=== PATIENT | female | born 1960 | race Caucasian/White ===

== ENCOUNTER 2024-12-21 17:51 | Inpatient (IN) | payer MEDICARE, OTHER, SELFPAY ==
[2024-12-21] VITALS (11 sets, daily range): BP systolic 113–139; BP diastolic 60–119; BMI 20.1
[2024-12-21] MEDS: HALDOL 5 MG IM (13:06)
[2024-12-21] MEDS: NSS 1000 IV (13:09)
--- NOTE | 2024-12-21 13:21 | ED.GENMED ---
History of Present Illness
General
Chief Complaint: Change in Mental Status
Time Seen by Provider: 12/21/24 12:40
History of Present Illness
History of Present Illness:
64-year-old female with history of dementia presenting from nursing facility for concern of increased agitation. Per nursing facility, patient has been agitated, started Seroquel, however reports it is not working. Patient very limited historian
on arrival, unable to answer any specific questions. Noted to be febrile on arrival. No reported infectious symptoms. No additional history obtained at this time
Phy Exam
Physical Exam
Physical Exam:
General: Cachectic, frail, dry mucous membranes
HEENT: protecting airway
Neck: appears supple
CV: Tachycardic, regular rhythm, no evidence of cyanosis
Resp: No accessory muscle use, no increased work of breathing, lungs clear to auscultation bilaterally
Abd: Soft and non-distended, no tenderness to palpation
Extremities: No deformities, no swelling, no erythema. Scattered bruising
Neuro: Awake, not answering any direct questions, moving all extremities equally
: deferred
Rectal: deferred
Psych: Agitated
Skin: Intact
Sepsis
Sepsis Screening
Sepsis Assessment: Sepsis
Sepsis Screen
Sepsis Screen: Sepsis
Date: 12/21/24
Time: 20:30
Course
Orders/Labs/Results
Orders:
Orders
12/21/24 Breakfast
Regular
12/21/24 12:51
Haloperidol Lactate [Haldol] 5 mg IM NOW STA
12/21/24 12:52
0.9% Sodium Chloride 1000 ml [Nss] 1,000 ml IV BOLUS
Haloperidol Lactate [Haldol] 5 mg .ROUTE .STK-MED ONE
12/21/24 12:53
CR Chest Portable - 1 View Urgent
Comment:
Reason For Exam: fever, AMS
Reason Study Needs to be Portable: Unable to Transport
12/21/24 13:13
COVID-19 Antigen Urgent
Source: Nasal Swab
Complete Blood Count/With Diff Urgent
Comprehensive Metabolic Panel Urgent
Lactic Acid Q4H
Comment: CANCEL 2nd LACTIC ACID IF 1st LACTIC ACID IS LESS THAN 2
Urinalysis Reflex To Culture Urgent
Date Specimen was Collected: 12/21/24
Time Specimen was Collected: 13:11
Urine Microscopic Reflex Cult Urgent
Blood Culture Q30M
JAUN Source: Blood/Venous
Specimen Description:
Influenza A+B Rapid Molecular Urgent
JAUN Source: Nasal Swab
Specimen Description:
Urine Culture Urgent
JAUN Source: U
Specimen Description:
Date Specimen was Collected: 12/21/24
Time Specimen was Collected: 13:11
12/21/24 13:54
CT Head W/o Iv Contrast Urgent
Comment:
Reason For Exam: AMS
12/21/24 14:00
Cefepime HCl [Maxipime] 2,000 mg IV NOW STA
12/21/24 14:09
Blood Culture Q30M
JAUN Source: Blood/Venous
Specimen Description:
12/21/24 14:40
Acetaminophen [Tylenol/Feverall] 650 mg RECTAL NOW STA
12/21/24 16:01
Admit/Transfer Patient As Directed
Co-Sign Provider:
Level of Care: Inpatient admission
Assign to:: Medical/Surgical
Physician / Group: Clementina
Diagnosis: Sepsis, UTI/PNA
Reason for Hospitalization: IV abx
Expected length of stay greater than two midnights?: Yes
ELOS- Estimated Length of Stay in days: 3
I certify the patient meets the requirements for IP care: Yes
PRN Pain Medication Management As Directed
May give lesser potent ordered pain med per pt: Yes
preference::
Protocol:: Medication orders for pain may be administered in a
manner that supports deferring to patient preference
when the pt is:
- Requesting an ordered lesser potent pain medication.
Least to most potent pain medications are defined
as: acetaminophen < NSAID < tramadol < opioids
(morphine, oxycodone, hydromorphone).
- Requesting a lesser dose of the same medication IF
ORDERED.
- Requesting a less intrusive route of administration
if both routes are prescribed by the provider (PO <
IV).
12/21/24 16:02
Code Status As Directed
Resuscitation Status: Do not resuscitate
Based on pt advanced directive or healthcare POA form: Yes
DNR Bracelet Application ONCE
12/21/24 16:09
ECG [Electrocardiogram (*1)] Urgent
Reason for Study: QTc Monitoring
12/21/24 16:38
Lactated Ringers [Lr] 1,000 ml IV BOLUS
12/21/24 18:25
Lactic Acid Q4H
Comment: CANCEL 2nd LACTIC ACID IF 1st LACTIC ACID IS LESS THAN 2
12/21/24 19:40
Acetaminophen [Tylenol] 650 mg PO Q4HPRN PRN
CefTRIAXone [Rocephin] 1,000 mg IV Q24H
Enoxaparin Sodium [Lovenox] 40 mg SC QPM
Lactated Ringers [Lr] 1,000 ml IV 75 mls/hr
12/21/24 19:40
Activity As Directed
Activity Level: Out of Bed-Early Mobility
With Assistance
Bladder Scan As Directed
Follow Bladder Retention/Intermittent Cath Algorithm?: Yes
PRN if no void in __ hours: 6
Frequency: Per Retention Algorithm
If Bladder Scan Result >: 400
then:: Straight cath
I&O [Intake/ Output] As Directed
Frequency: q12h
Pneumatic Compression Sleeves As Directed
Type: Knee high
Straight Cath As Directed
Frequency: Per Retention Algorithm
Additional Instructions: straight cath as needed per acute urinary retention algorithm for 24 hrs
Additional Instructions: for bladder scan greater than 400 mL
Vital Signs As Directed
Frequency: Per unit guidelines
DX Deep Vein Thrombosis Video Routine
DX Deep Vein Thrombosis Video Routine
12/21/24 20:00
Doxycycline [Vibramycin] 100 mg PO Q12
12/21/24 22:00
Divalproex Sodium [Depakote Sprinkle] 125 mg PO Q8H
Donepezil HCl [Aricept] 10 mg PO HS
Melatonin 3 mg PO HS
Quetiapine Fumarate [Seroquel] 25 mg PO HS
12/22/24 06:00
Complete Blood Count/No Diff IN AM
Comprehensive Metabolic Panel IN AM
Magnesium IN AM
12/22/24 08:00
Pantoprazole [Protonix] 40 mg PO DAILY
Quetiapine Fumarate [Seroquel] 12.5 mg PO DAILY
Sertraline HCl [Zoloft] 50 mg PO DAILY
Abnormal Lab Results
12/21/24
13:13
WBC 19.6 H 10^3/uL
(4.8-10.8)
RBC 4.07 L 10^6/uL
(4.20-5.40)
MCH 32.4 H pg
(27.0-31.0)
MPV 12.6 H fL
(7.4-10.4)
Abs Immat Gran (auto) 0.1 H 10^3/uL
(0-0.05)
Absolute Neuts (auto) 15.1 H 10^3/uL
(1.4-6.5)
Absolute Monos (auto) 2.4 H 10^3/uL
(0.1-0.6)
Immature Gran % 0.6 H %
(0-0.5)
Neutrophils % 76.9 H %
(42.2-75.2)
Lymphocytes % 9.6 L %
(20.5-51.1)
Monocytes % 12.3 H %
(1.7-9.3)
Sodium 149 H mmol/L
(135-145)
Chloride 113 H mmol/L
(98-107)
BUN 51 H mg/dl
(7-17)
Glucose 102 H mg/dl
(70-99)
Lactic Acid 2.9 H mmol/L
(0.7-2.0)
AST 88 H U/L
(14-36)
ALT 49 H U/L
(0-35)
Urine Ketones 1+ A
(Negative)
Ur Occult Blood Reflex 1+ A
(Negative)
Urine Bilirubin 1+ A
(Negative)
Leukocyte Esterase Rfl 1+ A
(Negative)
Urine RBC 7-10 A /HPF
(0-2)
Urine WBC (Reflex) 16-20 A /HPF
(0-5)
Urine Bacteria (Reflex) Moderate A
(Negative)
Urine Albumin (Reflex) 2+ A
(Neg - Trace)
12/21/24 13:13
12/21/24 13:13
Vital Signs
Initial and Last Documented VS:
Initial Vital Signs
Pulse Ox
98
12/21/24 12:45
Last Documented Vital Signs
Temp Pulse Resp BP Pulse Ox
98.0 F 73 17 137/93 97
12/21/24 20:07 12/21/24 20:07 12/21/24 20:07 12/21/24 20:07 12/21/24 19:00
MDM/Problems Addressed
MDM/Problems Addressed:
64-year-old female presenting from facility for concern of increased agitation. Vital signs on arrival significant for fever and tachycardia.
On exam patient is in no acute distress, however is very agitated, rolling around in bed, yelling. Known history of dementia, possible compensated dementia, however in the setting of low-grade fever and tachycardia, infectious pathology is also
consideration. Patient unable to answer any specific questions. Per nursing facility, started on Seroquel yesterday. Serotonin syndrome is a consideration, however no clonus or hyperreflexia. Patient given Haldol for agitation. Plan for
laboratory analysis and IV fluids.
14:00 -patient with elevated lactic acid and leukocytosis, consistent with infectious pathology. Blood pressure remains stable and lactate is also 4 without concern for severe sepsis or septic shock. Will continue IV fluids as clinically
indicated. Patient's urine does show elements of infection, was a clean source, start cath. Will start cefepime. Patient is more calm after Haldol. Will require admission for change in mental status with concern of underlying infection and
possible sepsis
15:00 -CT head negative and chest x-ray without sign of infection. Plan for admission
*Pulse Oximetry
SaO2: 99
Oxygen Mode of Delivery: Room air
Patient hypoxic: no
*Critical Care Note
Total Time (30-74mins, 75-104mins- exclusive of procedures): Not Applicable
ED Attending Note
-
Portions of this chart may have been created with voice recognition software.� Occasional wrong word or��sound alike� substitutions may have occurred due to the inherent limitations of voice recognition software.
Discharge Plan
Departure
Patient Disposition: Admit
Date of Disposition: 12/21/24
Time of Disposition: 15:05
Presentation/result/management discussed w/ accepting MD/DO: Hospitalist
Patient with high blood pressure during this ER visit?: Yes
Condition: Fair
Discharge Problem:
Altered mental status, Sepsis, Urinary tract infection
Interventions
Interventions:
*Risk Screen - Suicide Last Done: 12/21/24 12:46
*General Assessment Last Done: 12/21/24 12:46
*Neglect/Abuse Screening Last Done: 12/21/24 12:46
*ED- Fall Risk Assessment Last Done: 12/21/24 14:12
*ED COVID-19 Vaccine History Last Done: 12/21/24 14:12
*Nursing Disposition Last Done: 12/21/24 19:26
ED- Pulmonary Assessment Last Done: 12/21/24 12:45
ED-Psychological Assessment Last Done: 12/21/24 12:45
ED- Neurological Assessment Last Done: 12/21/24 12:45
ED Swallowing Screen Last Done: 12/21/24 16:10
Discharge Date and Time
Discharge Date/Time: 12/21/24 19:26
[2024-12-21 13:23] LABS: Hematocrit 39.4 % (37.0-47.0); Hemoglobin 13.2 g/dL (12.0-16.0); Mean Corp Hgb Conc. 33.5 g/dL (33.0-37.0); Mean Corpuscular Volume 96.8 fL (81.0-99.0); Nucleated Red Blood Cells % 0 %; Platelet Count 199 10^3/uL (130-400); Red Cell Dist. Width 12.1 % (11.5-14.5)
[2024-12-21 13:24] LABS: Urine Character Clear (Clear)
[2024-12-21 13:41] LABS: Urine Squamous Cell 26-30 /LPF (Few)
[2024-12-21 13:42] LABS: Urine White Cell 16-20 /HPF (0-5)
[2024-12-21 13:43] LABS: ALT (SGPT) 49 U/L (0-35); AST (SGOT) 88 U/L (14-36); Albumin 4.7 g/dl (3.5-5.0); Alkaline Phosphatase 56 U/L (38-126); Blood Urea Nitrogen 51 mg/dl (7-17); Calcium 10.1 mg/dl (8.4-10.2); Carbon Dioxide 27 mmol/L (22-30); Chloride 113 mmol/L (98-107); Estimated Creatinine Clearance 57 ml/min; Glucose 102 mg/dl (70-99); Potassium 4.5 mmol/L (3.5-5.1); Sodium 149 mmol/L (135-145); Total Protein 7.9 g/dl (6.3-8.2); eGFR > 60.00
[2024-12-21 13:56] LABS: COVID-19 Antigen Negative (Negative)
[2024-12-21] MEDS: MAXIPIME 2000 MG IV (14:14)
--- NOTE | 2024-12-21 15:39 | HPS.HSE ---
Addendum entered and electronically signed by Roney Mcrae MD 12/21/24 17:28:
I saw and examined the patient.
The PROFESSOR OF ANTHROPOLOGY or PA's note was reviewed and I agree with the note.
Comment:
64-year-old female with past medical history of dementia and memory care unit presents with agitation. At the time of admission, patient is somnolent due to Haldol given for agitation. As per ED, patient was started on Seroquel at the unit for
agitation although was not working. Also had limited history upon arrival. Data includes temperature 99.2, pulse 79, respiratory rate 20, blood pressure 116/61. White count 19.6, sodium 149, UA positive. X-ray with possible left basilar opacity
indicative of either atelectasis or pneumonia. There is some periosteal thickening of the mid diaphysis of the right humerus, possible old injury, less likely infection.
Plan�ceftriaxone, doxycycline to cover UTI as well as pneumonia. Follow-up blood cultures. LR bolus now, continue IV fluids. Repeat BMP in the morning. Holding statin for transaminitis. Haldol as needed if needed EKG with QTc under 500. Avoid
benzodiazepines. If mental status does not improve with antibiotics then may need to investigate right humerus further. At this time UTI along with possible pneumonia is more likely source of infection.
Original Note:
Family Physician
-
Family Physician: Domo Echevarria
Chief Complaint
-
Agitation
History of Present Illness
Patient is a 64 y/o female past medical history of dementia who presents with agitation. Patient is unable to give any additional history due to dementia and her current sedated state following Haldol 5mg IM given in ED prior to my evaluation.
Patient was brought to the hosptial via EMS due to extreme agitation. Upon arrival to the emergency department she was noted to be febrile with temp 100.7F. Urinalysis raises concern for possible infection, and CXR shows a LLL opacity possibly
atelectasis vs pneumonia.
Medical History
Past Medical History
Past Medical History: Reports Other
Additional Past Medical History:
Alzheimer's Dementia
Anxiety/Depression
Hyperlipidemia
Past Surgical History: Reports Other (Unknown)
Social History
Unable to obtain full social history at this time due to: Dementia
Living: Assisted Living (Memory Care)
Family History
Family History: Unable to Obtain
Allergies / Home Medications
Allergies reflects when Allergies were last updated in [facility].
Home Medications with original date entered in [facility]
Allergy/Medication List:
Allergies
Allergy/AdvReac Type Severity Reaction Status Date / Time
No Known Allergies Allergy Unverified 12/21/24 12:46
Home Medications
acetaminophen 650 mg tablet,extended release 650 mg PO DAILYPRN PRN mild pain 12/21/24
atorvastatin 20 mg tablet (Lipitor) 20 mg PO DAILY 12/21/24
divalproex 125 mg capsule,delayed release sprinkle 125 mg PO Q8H@0600,1400,2200 12/21/24
donepezil 10 mg tablet 10 mg PO HS 12/21/24
ergocalciferol (vitamin D2) 1,250 mcg (50,000 unit) capsule 1,250 mcg PO WEEKLY 12/21/24
melatonin 3 mg tablet 3 mg PO HS 12/21/24
omeprazole 20 mg tablet,delayed release 20 mg PO DAILY 12/21/24
quetiapine 25 mg tablet (Seroquel) 12.5 mg PO DAILY 12/21/24
quetiapine 25 mg tablet (Seroquel) 25 mg PO HS 12/21/24
sertraline 50 mg tablet 50 mg PO DAILY 12/21/24
Review of Systems
-
Unable to obtain full review of systems at this time due to: Dementia
Physical Exam
Vital Signs
Vital Signs
Temp Pulse Resp BP Pulse Ox
100.7 F H 88 15 128/67 99
12/21/24 12:46 12/21/24 15:30 12/21/24 15:30 12/21/24 14:52 12/21/24 13:24
Physical Exam
General: Well Developed and Well Nourished
HEENT: NormoCephalic and Atraumatic
Respiratory: Clear and Non Labored Respirations
Cardiac: S1/S2 and Regular Rhythm; No Tachycardia
GI: Soft and Non Tender
Rectal: Deferred by Provider
Musculoskeletal: No Clubbing, No Cyanosis and No Edema
Skin: Warm and Dry
Neuro: Sedated
Laboratory Results
-
12/21/24 13:13
12/21/24 13:13
Laboratory Results
Lactic Acid 2.9 mmol/L (0.7-2.0) H 12/21/24 13:13
Total Bilirubin 1.3 mg/dl (0.2-1.3) 12/21/24 13:13
AST 88 U/L (14-36) H 12/21/24 13:13
ALT 49 U/L (0-35) H 12/21/24 13:13
Alkaline Phosphatase 56 U/L (38-126) 12/21/24 13:13
Impression/Plan
-
Sepsis / TME secondary to UTI vs Pneumonia
-Continue ceftriaxone and doxycycline
-Await urine and blood culture
Hypernatremia / Azotemia
-Continue IVFs
-Recheck labs in AM
Transaminitis
-Hold statin
-Continue to trend
-Consult Abd US if trending upwards
Alzheimer's Dementia, suspect underlying behavioral disturbance
-Continue divalproex and quetiapine
-Continue donepezil
Anxiety/Depression
-Continue sertraline
Insomnia
-Continue melatonin
Hyperlipidemia
-Hold atorvastatin as AST/ALT are slightly high
DVT proph: SCDs
Code Status: DNR per POLST
[2024-12-21] MEDS: TYLENOL/FEVERALL 650 MG RECTAL (16:01)
[2024-12-21] MEDS: LR 1000 IV ×2 (18:33→20:59)
--- NOTE | 2024-12-21 19:40 | PTCARENOTE ---
Patient received from ED, eyes closed,lethargic, apical regular, no edema noted. Lungs diminished,on room air. Abdomen soft. skin with multiple bruises on bilateral hips, elbows, arms and legs. #22 g in left hand flushed and patent
[2024-12-21] MEDS: STERILE WATER FOR INJECTION 10 ML IV (20:00)
[2024-12-21] MEDS: ROCEPHIN 1000 MG IV (20:00)
[2024-12-21] MEDS: LOVENOX SC (20:00)
[2024-12-21] MEDS: FLUSH (NSS) 1 FLUSH IV (21:00)
[2024-12-22 00:29] VITALS: BP 118/57
[2024-12-22] MEDS: VIBRAMYCIN PO (00:30)
[2024-12-22] MEDS: ARICEPT PO (00:30)
[2024-12-22] MEDS: MELATONIN PO (00:30)
[2024-12-22] MEDS: DEPAKOTE SPRINKLE PO ×2 (00:30→07:15)
[2024-12-22] MEDS: FLUSH (NSS) IV (00:30)
[2024-12-22] MEDS: SEROQUEL PO (00:31)
--- NOTE | 2024-12-22 00:31 | PTCARENOTE ---
Patient remains lethargic, unable to administer meds safely at this time
[2024-12-22 07:10] VITALS: BP 143/79
[2024-12-22 08:39] LABS: Hematocrit 36.6 % (37.0-47.0); Hemoglobin 11.8 g/dL (12.0-16.0); Mean Corp Hgb Conc. 32.2 g/dL (33.0-37.0); Mean Corpuscular Volume 99.7 fL (81.0-99.0); Platelet Count 185 10^3/uL (130-400); Red Cell Dist. Width 12.1 % (11.5-14.5)
[2024-12-22] MEDS: ZOLOFT 50 MG PO (08:55)
[2024-12-22] MEDS: SEROQUEL 12.5 MG PO (08:56)
[2024-12-22] MEDS: VIBRAMYCIN 100 MG PO ×2 (08:56→20:17)
[2024-12-22] MEDS: PROTONIX 40 MG PO (08:58)
[2024-12-22 09:11] LABS: ALT (SGPT) 47 U/L (0-35); AST (SGOT) 73 U/L (14-36); Albumin 4.0 g/dl (3.5-5.0); Alkaline Phosphatase 58 U/L (38-126); Blood Urea Nitrogen 34 mg/dl (7-17); Calcium 9.4 mg/dl (8.4-10.2); Carbon Dioxide 29 mmol/L (22-30); Chloride 113 mmol/L (98-107); Estimated Creatinine Clearance 75 ml/min; Glucose 89 mg/dl (70-99); Magnesium 2.1 mg/dl (1.6-2.3); Potassium 4.2 mmol/L (3.5-5.1); Sodium 147 mmol/L (135-145); Total Protein 6.7 g/dl (6.3-8.2); eGFR > 60.00
--- NOTE | 2024-12-22 13:43 | PTCARENOTE ---
Assumed care of pt from previous nurse. Bed bath and mouth care provided. Pt alert, able to tolerate p.o. Pt call soria is within reach, pt does not ring maria g. Rounding in place, will cont to monitor.
--- NOTE | 2024-12-22 14:00 | W.PN.HOSP.TC ---
Today's Communication/Plan
-
Cont abx
f/u cultures, sputum if expectorating
Assessment / Plan
Assessment / Plan
Physical Exam
General: Well Developed and Well Nourished
HEENT: NormoCephalic and Atraumatic
Respiratory: Clear and Non Labored Respirations
Cardiac: S1/S2 and Regular Rhythm; No Tachycardia
GI: Soft and Non Tender
Rectal: Deferred by Provider
Musculoskeletal: No Clubbing, No Cyanosis and No Edema
Skin: Warm and Dry
Neuro: Sedated
-
Sepsis / TME secondary to probable Pneumonia
-Continue ceftriaxone and doxycycline
-Await urine and blood culture
Hypernatremia / Azotemia
-Continue IVFs
-Recheck labs in AM
Transaminitis
-Hold statin
-Continue to trend
- Abd US if trending upwards
Alzheimer's Dementia, suspect underlying behavioral disturbance
-Continue divalproex and quetiapine
-Continue donepezil
Anxiety/Depression
-Continue sertraline
Insomnia
-Continue melatonin
Hyperlipidemia
-Hold atorvastatin as AST/ALT are slightly high
DVT proph: SCDs
Code Status: DNR per POLST
Anticipated Discharge: 24 - 48 hours
Subjective/Interval History
-
Date of Service: December 22, 2024
no acute events overnight
Objective Data
-
Labs:
Laboratory Results
12/22/24
08:31
WBC 10.2
Hgb 11.8 L
Hct 36.6 L
Plt Count 185
Sodium 147 H
Potassium 4.2
Chloride 113 H
Carbon Dioxide 29
BUN 34 H
Creatinine 0.6
Glucose 89
Calcium 9.4
Total Bilirubin 1.1
AST 73 H
ALT 47 H
Alkaline Phosphatase 58
Vital Signs:
Vital Signs
Temp Pulse Resp BP Pulse Ox
97.4 F 78 14 143/79 99
12/22/24 07:10 12/22/24 07:10 12/22/24 07:10 12/22/24 07:10 12/22/24 07:45
I&O
12/21/24 12/22/24 12/23/24
06:59 06:59 06:59
Intake Total 0 / 0
Balance 0 / 0
Review of Systems
-
History Source: Patient
All other systems: Not reviewed unless documented
Data Reviewed
-
Diagnostic Radiology: Report Reviewed by me
CT Scan: Report Reviewed by me
Labs: Labs Reviewed by me
[2024-12-22 15:15] VITALS: BP 147/68
--- NOTE | 2024-12-22 15:35 | WOUNDNOTE ---
LEFT LEG BRUISE
[2024-12-22] MEDS: DEPAKOTE SPRINKLE 125 MG PO ×2 (15:40→20:54)
[2024-12-22] MEDS: HALDOL IV (15:42)
[2024-12-22] MEDS: LR 1000 IV (15:42)
--- NOTE | 2024-12-22 15:49 | CM ---
Initial assessment completed. Patient is a 64 y/o female past medical history of dementia who presents with agitation.
Spoke w/ Surekha/MARCY at [facility] assisted living memory care. Patient admitted Wednesday evening, per Surekha, patient is fully assisted w/ ambulation and ADLs. Patient has presented behaviors to include throwing herself onto the floor and refusing to
get up. Per Surekha, patient has had 14 incidents since admitting to facility. Surekha is requesting PT order to evaluate for skilled rehab as patient does not walk. CM was informed patient may need LTC memory care placement, spouse has been notified
about this.
TT hospitalist requesting PT/OT orders
PCP: Domo Echevarria
Pharmacy: [facility]
Attempted calls to spouse and daughter, no answer
Plan: CM will cont to follow for d/c planning
--- NOTE | 2024-12-22 15:55 | WOUNDNOTE ---
Addendum entered by Mady Lane RN 12/22/24 15:56:
SACRAL COCCYX
Original Note:
--- NOTE | 2024-12-22 16:07 | WOUNDNOTE ---
[facility] RN note: Patient admitted with agitation
See H&P for complete history.
PMH: Alzheimer's Dementia, Anxiety/Depression, Hyperlipidemia
Wound Location and type/assessment: Patient admitted with stage 2 of sacral coccyx and bruising noted on hips , back and legs. Please see worklist for measurements and details of stage 2 wound. Patient does move in bed due to agitation. Heels are
intact.
Appetite: Patient just admitted but likely poor intake due to agitation.
Pressure redistribution devices in place: Patient currently on [employer] bed. This automotive service writer spoke to on-call Housekeeping and ordered air mattress due to patients fragile skin and poor PO intake. Order added for air mattress.
Plan: Dressing was maintained at time of assessment. Staff can use Calazime to wound and cover with silicone foam PRN, depending on incontinence. RN Veronica aware new bed ordered. Will confirm orders with hospitalist.
Updated care plan and will follow as needed.
Note to case management of equipment requested for discharge:
Recommend follow up at wound care center upon discharge.
--- NOTE | 2024-12-22 16:20 | PN.CDI ---
CDI
- -
CDI:
Physician Documentation Request
Admit Date: 12/21/24 17:51
Dear Doctor Clementina,
Please review the following and provide your response in the progress notes.
Clinical Indicators:
Pt admitted with Sepsis 2/2 PNA/TME
Documented per Nursing wound care note 12/22,' wounds present on admission coccyx pressure injury stage 2 ...dressing in [address]...'
Physician documentation of the type and location of wounds is required for compliant documentation. Based on the above clinical findings and your assessment, please provide the following in your progress note:
1. Location of the ulcer/wound, including laterality.
2. Type (etiology) of ulcer/wound:
- Pressure (decubitus) ulcer
- Non-pressure ulcer
- Other ( please specify)
Use of terms such as suspected, likely, concern for, or probable (associated with a specific diagnosis that is being evaluated, monitored, or treated as if it exists) are acceptable and can be coded in the inpatient setting, when documented at the
time of discharge.
Thank you,
Nicole Munguia RN
CDI Specialist
[place] [facility]
Please use your independent medical judgment in providing your response.
*Source: National Pressure Ulcer Advisory Panel (NPUAP)
[2024-12-22] MEDS: HALDOL 1 MG IV (16:29)
[2024-12-22] MEDS: LOVENOX SC (17:22)
[2024-12-22] MEDS: FLUSH (NSS) 1 FLUSH IV ×2 (20:14→20:15)
[2024-12-22] MEDS: ROCEPHIN 1000 MG IV (20:16)
[2024-12-22] MEDS: STERILE WATER FOR INJECTION 10 ML IV (20:17)
[2024-12-22] MEDS: ARICEPT 10 MG PO (20:55)
[2024-12-22] MEDS: MELATONIN 3 MG PO (20:55)
[2024-12-22] MEDS: SEROQUEL 25 MG PO (20:55)
[2024-12-22 23:14] VITALS: BP 132/70
[2024-12-23] MEDS: LR 1000 IV ×2 (05:43→16:55)
[2024-12-23] MEDS: DEPAKOTE SPRINKLE 125 MG PO ×2 (05:44→16:47)
[2024-12-23 07:23] LABS: Hematocrit 34.8 % (37.0-47.0); Hemoglobin 11.6 g/dL (12.0-16.0); Mean Corp Hgb Conc. 33.3 g/dL (33.0-37.0); Mean Corpuscular Volume 98.0 fL (81.0-99.0); Platelet Count 174 10^3/uL (130-400); Red Cell Dist. Width 11.8 % (11.5-14.5)
[2024-12-23 07:45] LABS: ALT (SGPT) 42 U/L (0-35); AST (SGOT) 52 U/L (14-36); Albumin 3.5 g/dl (3.5-5.0); Alkaline Phosphatase 54 U/L (38-126); Blood Urea Nitrogen 20 mg/dl (7-17); Calcium 9.0 mg/dl (8.4-10.2); Carbon Dioxide 28 mmol/L (22-30); Chloride 107 mmol/L (98-107); Estimated Creatinine Clearance 75 ml/min; Glucose 81 mg/dl (70-99); Potassium 3.8 mmol/L (3.5-5.1); Sodium 141 mmol/L (135-145); Total Protein 6.0 g/dl (6.3-8.2); eGFR > 60.00
[2024-12-23] MEDS: PROTONIX 40 MG PO (08:28)
[2024-12-23] MEDS: VIBRAMYCIN 100 MG PO ×2 (08:28→20:00)
[2024-12-23] MEDS: ZOLOFT 50 MG PO (08:28)
[2024-12-23] MEDS: SEROQUEL 12.5 MG PO (08:29)
[2024-12-23 08:56] VITALS: BP 136/57
--- NOTE | 2024-12-23 13:51 | W.PN.HOSP.TC ---
Addendum entered and electronically signed by Roney Mcrae MD 12/23/24 15:48:
coccyx pressure injury stage 2
Original Note:
Today's Communication/Plan
-
Cont abx
f/u cultures
Psych and Neurology consulted for disposition efforts
Assessment / Plan
Assessment / Plan
Physical Exam
General: Well Developed and Well Nourished
HEENT: NormoCephalic and Atraumatic
Respiratory: Clear and Non Labored Respirations
Cardiac: S1/S2 and Regular Rhythm; No Tachycardia
GI: Soft and Non Tender
Rectal: Deferred by Provider
Musculoskeletal: No Clubbing, No Cyanosis and No Edema
Skin: Warm and Dry
Neuro: Sedated
-
Sepsis / TME secondary to probable Pneumonia
-Continue ceftriaxone and doxycycline
-Await blood culture results
Hypernatremia / Azotemia
-Continue IVFs
-Recheck labs in AM
-tolerating diet
Transaminitis
-Hold statin
-Continue to trend
- Abd US if trending upwards
Alzheimer's Dementia, suspect underlying behavioral disturbance
-Continue divalproex and quetiapine
-Continue donepezil
-Psych and Neurology consulted for disposition efforts
Anxiety/Depression
-Continue sertraline
Insomnia
-Continue melatonin
Hyperlipidemia
-Hold atorvastatin as AST/ALT are slightly high
DVT proph: SCDs
Code Status: DNR per POLST
Anticipated Discharge: 24 - 48 hours
Subjective/Interval History
-
Date of Service: December 23, 2024
no acute events overnight
Objective Data
-
Labs:
Laboratory Results
12/23/24
06:40
WBC 9.5
Hgb 11.6 L
Hct 34.8 L
Plt Count 174
Sodium 141
Potassium 3.8
Chloride 107
Carbon Dioxide 28
BUN 20 H
Creatinine 0.6
Glucose 81
Calcium 9.0
Total Bilirubin 0.8
AST 52 H
ALT 42 H
Alkaline Phosphatase 54
Vital Signs:
Vital Signs
Temp Pulse Resp BP Pulse Ox
97.6 F 57 18 136/57 95
12/23/24 08:56 12/23/24 08:56 12/23/24 08:56 12/23/24 08:56 12/23/24 08:56
I&O
12/22/24 12/23/24 12/24/24
06:59 06:59 06:59
Intake Total 0 / 0 80 / 80
Balance 0 / 0 80 / 80
Review of Systems
-
History Source: Patient
All other systems: Not reviewed unless documented
Data Reviewed
-
Diagnostic Radiology: Report Reviewed by me
CT Scan: Report Reviewed by me
Labs: Labs Reviewed by me
[2024-12-23] MEDS: DEPAKOTE SPRINKLE PO (14:03)
[2024-12-23 15:24] VITALS: BP 140/73
--- NOTE | 2024-12-23 16:03 | CM ---
account manager sales representative reviewed patient's chart and met with katy and daughter Mady, per patient's daughter [facility] patient [facility], patient has had multiple admissions to hospitals and then sent for placement, it has been difficult to find
placement due to behaviors per patients daughter but she understood that [facility] would accept patient [facility], psychiatry consult is pending along with neurology.
Plan; To follow up with discharge planning for patient.
[2024-12-23] MEDS: HALDOL 1 MG IV (16:47)
[2024-12-23] MEDS: LOVENOX 40 MG SC (16:49)
--- NOTE | 2024-12-23 17:07 | CON.MD ---
Addendum entered and electronically signed by Jose Marcano MD 12/24/24 12:00:
Confirmed with nurse that mirtazapine was given last night and she had a good night. However, did need PRN haloperidol IV later this morning.
Original Note:
Consultation - Medical
-
64 y/o woman admitted from [facility] on 12/21/24 due to agitation. found to have low-grade fever, elevated WBC and started on antibiotics. CXR suggests pneumonia. Now afebrile with normalization of WBC. She has a history of
progressive dementia over several years. According to her daughter, Mady but had stroke-like symptoms on 12/03/24 with right sided weakness and blurred speech. Started becoming aggressive to her in June. Admitted to [facility]
on November 24. Has had two hospitalizations for agitation since: [facility] and then [facility]. Also seen at [facility] due to a fall and head trauma. Was most recently at [facility] where she again became agitated.
She apparently has been tried on a number of medications without success. Has outpatient neurologist. Depakote is being used for behavioral control; never had seizures.
Psychiatry consulted to assist with diagnosis and management at request of daughter. I have also asked Neurology to see this patient given the early age of onset of dementia without family history of such and stroke-like symptoms and possibly past
abnormal CT.
Has had weight loss. Not eating or drinking in the hospital (was at [facility]).
Patient is unable to give any history.
Past History: No history of mental illness. Onset of dementia apparently gradual over the past few years, but not aggressive until recently.
Family History: No known family history of mental illness. No family history of early onset dementia or other neurological conditions.
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 No drug or alcohol use.
three times. Has two daughters.
Apparently did not do well with Ativan in the past.
Home Medications: Atorvastain 20 mg; valproix sprinkle 125 mg. TI; donepezil 10 mg. HS; Vit D2; melatonin 3 mg. HS; omeprazole 20 mg QD, quetiapine 12.5 mg. AM and 25 mg. HS; sertraline 50 mg. QD.
Mental status: Woman appearing much older than chronological age; unkempt. Not able to meaningfully communicate. Nurse was able to feed her apple sauce with her pills now and a sip of water, but otherwise not eating. Crying out now.
Treatment plan discussed with daughter.
Will stop Depakote and Seroquel. Will give oral Haldol 2 mg. TID and continue IV PRN 1 mg. Will add Remeron 7.5 mg. HS. For now, continue Zoloft 50 mg.
Neurology consult pending.
Diagnosis: Dementia with Agitation
Psychiatry will follow.
[2024-12-23] MEDS: FLUSH (NSS) 1 FLUSH IV ×2 (19:58→19:59)
[2024-12-23] MEDS: ROCEPHIN 1000 MG IV (20:01)
[2024-12-23] MEDS: STERILE WATER FOR INJECTION 10 ML IV (20:01)
[2024-12-23] MEDS: REMERON 7.5 MG PO (21:33)
[2024-12-23] MEDS: HALDOL 2 MG PO (21:33)
[2024-12-23] MEDS: ARICEPT 10 MG PO (21:34)
[2024-12-23] MEDS: MELATONIN 3 MG PO (21:34)
[2024-12-23 23:00] VITALS: BP 119/78
[2024-12-24] MEDS: HALDOL IV (06:51)
[2024-12-24 07:13] LABS: Hematocrit 34.1 % (37.0-47.0); Hemoglobin 11.7 g/dL (12.0-16.0); Mean Corp Hgb Conc. 34.3 g/dL (33.0-37.0); Mean Corpuscular Volume 95.5 fL (81.0-99.0); Platelet Count 186 10^3/uL (130-400); Red Cell Dist. Width 11.5 % (11.5-14.5)
[2024-12-24 07:35] LABS: ALT (SGPT) 36 U/L (0-35); AST (SGOT) 39 U/L (14-36); Albumin 3.4 g/dl (3.5-5.0); Alkaline Phosphatase 54 U/L (38-126); Blood Urea Nitrogen 14 mg/dl (7-17); Calcium 8.9 mg/dl (8.4-10.2); Carbon Dioxide 30 mmol/L (22-30); Chloride 106 mmol/L (98-107); Estimated Creatinine Clearance 75 ml/min; Glucose 94 mg/dl (70-99); Potassium 4.4 mmol/L (3.5-5.1); Sodium 140 mmol/L (135-145); Total Protein 5.8 g/dl (6.3-8.2); eGFR > 60.00
[2024-12-24] MEDS: PROTONIX 40 MG PO (07:43)
[2024-12-24] MEDS: ZOLOFT 50 MG PO (07:43)
[2024-12-24] MEDS: VIBRAMYCIN 100 MG PO ×2 (07:43→19:47)
[2024-12-24] MEDS: HALDOL 2 MG PO ×3 (07:43→21:18)
[2024-12-24 08:00] VITALS: BP 127/59
[2024-12-24] MEDS: HALDOL 1 MG IV ×2 (10:53→18:12)
--- NOTE | 2024-12-24 11:49 | W.PN.UPDATE ---
Update Note
Progress Note Update
64 y/o woman with onset of dementia age 60 was admitted due to behavioral problems in [facility] facility. She has had poor oral intake, would either be asleep or agitated/combative since admission. Yesterday, antipsychotic switched to
haloperidol 2 mg. TID, valproate stopped, and mirtazapine 7.5 mg. HS added (uncertain if administered) and Zoloft, Aricept continued for now.
Today other sister, and two granddaughters visiting. She is awake and calm. Able to give 's name. Smiled. Oral intake is still a problem.
Neurology consult pending. Please address whether Aricept should be continued and if any evidence of CVA December 03. Zoloft not be necessary, but I did not want to make too many changes at once. Would likely not tolerate MRI.
Plan to return to [facility].
No medication changes made.
Psychiatry will continue to follow.
--- NOTE | 2024-12-24 14:13 | W.PN.HOSP.TC ---
Today's Communication/Plan
-
Cont abx
Psych and Neurology consulted for disposition efforts
Assessment / Plan
Assessment / Plan
Physical Exam
General: Well Developed and Well Nourished
HEENT: NormoCephalic and Atraumatic
Respiratory: Clear and Non Labored Respirations
Cardiac: S1/S2 and Regular Rhythm; No Tachycardia
GI: Soft and Non Tender
Rectal: Deferred by Provider
Musculoskeletal: No Clubbing, No Cyanosis and No Edema
Skin: Warm and Dry
Neuro: Sedated
-
Sepsis / TME secondary to probable Pneumonia
-Continue ceftriaxone and doxycycline�can complete 5 to 7-day course
Hypernatremia / Azotemia
�Most likely secondary dehydration
� Resolved
� Can stop IV fluids
-tolerating diet
Transaminitis, mild
-Hold statin
-Continue to trend
- Abd US if trending upwards
Alzheimer's Dementia, suspect underlying behavioral disturbance
-Continue divalproex and quetiapine
-Continue donepezil
-Psych and Neurology consulted for disposition efforts
Anxiety/Depression
-Continue sertraline
Insomnia
-Continue melatonin
Hyperlipidemia
-Hold atorvastatin as AST/ALT are slightly high
DVT proph: SCDs
Code Status: DNR per POLST
Anticipated Discharge: Within 24 hours
Subjective/Interval History
-
Date of Service: December 24, 2024
No acute events overnight
Objective Data
-
Labs:
Laboratory Results
12/24/24
06:17
WBC 8.8
Hgb 11.7 L
Hct 34.1 L
Plt Count 186
Sodium 140
Potassium 4.4
Chloride 106
Carbon Dioxide 30
BUN 14
Creatinine 0.6
Glucose 94
Calcium 8.9
Total Bilirubin 0.7
AST 39 H
ALT 36 H
Alkaline Phosphatase 54
Vital Signs:
Vital Signs
Temp Pulse Resp BP Pulse Ox
98 F 74 17 127/59 99
12/24/24 08:00 12/24/24 08:00 12/24/24 08:00 12/24/24 08:00 12/24/24 08:00
I&O
12/23/24 12/24/24 12/25/24
06:59 06:59 06:59
Intake Total 80 / 80 1240 / 1240
Balance 80 / 80 1240 / 1240
Review of Systems
-
History Source: Patient
All other systems: Not reviewed unless documented
Data Reviewed
-
Diagnostic Radiology: Report Reviewed by me
CT Scan: Report Reviewed by me
Labs: Labs Reviewed by me
[2024-12-24 15:00] VITALS: BP 114/60
[2024-12-24] MEDS: LOVENOX 40 MG SC (16:56)
[2024-12-24] MEDS: FLUSH (NSS) 1 FLUSH IV ×2 (19:46)
[2024-12-24] MEDS: ROCEPHIN 1000 MG IV (19:47)
[2024-12-24] MEDS: STERILE WATER FOR INJECTION 10 ML IV (19:47)
[2024-12-24] MEDS: MELATONIN 3 MG PO (21:18)
[2024-12-24] MEDS: REMERON 7.5 MG PO (21:18)
[2024-12-24] MEDS: ARICEPT 10 MG PO (21:18)
[2024-12-24 23:00] VITALS: BP 102/60
[2024-12-25 07:58] VITALS: BP 149/77
[2024-12-25 08:09] LABS: Hematocrit 36.0 % (37.0-47.0); Hemoglobin 12.3 g/dL (12.0-16.0); Mean Corp Hgb Conc. 34.2 g/dL (33.0-37.0); Mean Corpuscular Volume 95.2 fL (81.0-99.0); Platelet Count 200 10^3/uL (130-400); Red Cell Dist. Width 11.7 % (11.5-14.5)
[2024-12-25] MEDS: VIBRAMYCIN 100 MG PO ×2 (08:34→20:12)
[2024-12-25] MEDS: ZOLOFT 50 MG PO (08:34)
[2024-12-25] MEDS: PROTONIX 40 MG PO (08:34)
[2024-12-25] MEDS: HALDOL 2 MG PO ×3 (08:34→22:22)
[2024-12-25 09:02] VITALS: BP 127/74; O2SAT 98
[2024-12-25 09:03] VITALS: BP 127/75; PULSE 76; O2SAT 98
[2024-12-25 09:23] LABS: ALT (SGPT) 31 U/L (0-35); AST (SGOT) 31 U/L (14-36); Albumin 3.4 g/dl (3.5-5.0); Alkaline Phosphatase 50 U/L (38-126); Blood Urea Nitrogen 14 mg/dl (7-17); Calcium 8.9 mg/dl (8.4-10.2); Carbon Dioxide 33 mmol/L (22-30); Chloride 105 mmol/L (98-107); Estimated Creatinine Clearance 75 ml/min; Glucose 103 mg/dl (70-99); Potassium 3.8 mmol/L (3.5-5.1); Sodium 140 mmol/L (135-145); Total Protein 6.0 g/dl (6.3-8.2); eGFR > 60.00
--- NOTE | 2024-12-25 11:14 | W.PN.HOSP.TC ---
Today's Communication/Plan
-
recheck CXR, labs
if continue to do well, potentially complete abx tomorrow evening and then dispo to follow
Assessment / Plan
Assessment / Plan
-
Sepsis / TME secondary to probable Pneumonia
-Continue ceftriaxone and doxycycline�can complete 5 to 7-day course
has received 4 doses, to get 5th dose tonight
Hypernatremia / Azotemia
�Most likely secondary dehydration
� Resolved
� Can stop IV fluids
-tolerating diet
Na 149-->147-->141-->140-(IVF stopped)->140
Transaminitis, mild
-Hold statin
-Continue to trend, AST/ALT have normalized
Alzheimer's Dementia, suspect underlying behavioral disturbance
-Continue divalproex and quetiapine
-Continue donepezil
-Psych and Neurology consulted for disposition efforts
Anxiety/Depression
-Continue sertraline
Insomnia
-Continue melatonin
Hyperlipidemia
-Hold atorvastatin as AST/ALT are slightly high
DVT proph: SCDs
recheck CXR, labs
Code Status: DNR per POLST
Anticipated Discharge: 24 - 48 hours
Subjective/Interval History
-
Date of Service: December 25, 2024
Impaired mentation
Objective Data
-
Labs:
Laboratory Results
12/25/24
08:00
WBC 7.4
Hgb 12.3
Hct 36.0 L
Plt Count 200
Sodium 140
Potassium 3.8
Chloride 105
Carbon Dioxide 33 H
BUN 14
Creatinine 0.6
Glucose 103 H
Calcium 8.9
Total Bilirubin 0.5
AST 31
ALT 31
Alkaline Phosphatase 50
Vital Signs:
Vital Signs
Temp Pulse Resp BP Pulse Ox
98.3 F 75 16 149/77 99
12/25/24 07:58 12/25/24 07:58 12/25/24 07:58 12/25/24 07:58 12/25/24 07:58
I&O
12/24/24 12/25/24 12/26/24
06:59 06:59 06:59
Intake Total 1240 / 1240 440 / 440
Balance 1240 / 1240 440 / 440
Review of Systems
-
Unable to obtain full review of systems at this time due to: Dementia
History Source: Coordinated Provider (reviewed with AMELIA Dickens)
Constitutional: Denies Fever
Respiratory: Reports No Symptoms
Cardiac: Reports No Symptoms
Abdomen/GI: Reports No Symptoms
Physical Exam
-
General: Well Developed, Well Nourished and No Apparent Distress
HEENT: Normocephalic, Atraumatic and Moist Mucous Membranes
Respiratory: Clear to Auscultation; Negative Wheezes, Rales or Rhonchi
Cardiac: Regular Rhythm and S1/S2
GI: Soft, Nontender and Nondistended
Musculoskeletal: No Clubbing, No Cyanosis and No Edema
Neuro: Awake, Alert and Other (obviously very impaired cognitive function); Negative Oriented or AO x 3
--- NOTE | 2024-12-25 13:59 | CON.NEURO ---
Addendum entered and electronically signed by Dallin Dow MD 12/25/24 14:57:
Studies reviewed.
I have personally examined the patient. I reviewed and agree with the WING MAILER MACHINE OPERATOR's Note.
My addenda:
Awake, alert, interactive. No acute distress.
Speech mumbled.
Unable to follow single-step requests w/o difficulty. No tremor.
Extra-ocular movements grossly intact.
Facial movements full and symmetric. Hearing intact to normal conversational volume.
Normal UE movements bilaterally.
Neck: full ROM.
Chest: no dyspnea
Heart: no JVD
Ext: (-) Clubbing, (-) Cyanosis, (-) Edema
IMPRESSIONS/RECOMMENDATIONS:
Abrupt onset of worsening agitation in a patient with longstanding history of dementia
Most likely secondary to the patient's worsening progressive degenerative neurological disorder of unclear etiology but presumed to be relatively early onset Alzheimer's type disease. The patient's family did not have records of assistance and
could not provide her medical history. There is no evidence at this time of a metabolic etiology to explain the patient's dementia
Continue current medications
Would not at this time discontinue donepezil which is potentially producing minimal benefit with regards the patient's mood and unlikely to be of great assistance with regards to stabilizing patient's underlying dementia
D/W family at bedside
All questions answered.
Will continue to follow as needed.
Original Note:
Neuro Assessment/Plan
Assessment
64 y/o woman with a past medical history of dementia admitted from [facility] presented to [facility] on 12/21/24 due to agitation.
Head CT: No acute intracranial abnormality.
Labs: WBC 10.2, Na 149, BUN 51
Plan
Impressions: worsening agitation due to dehydration and sepsis/toxic metabolic encephalopathy with underlying dementia
-would likely not tolerate MRI, most likely would not change room attendant
-appreciate psych recommendations
-continue current medication regimen
-ok to continue Aricept
-fall precautions
-PT/OT/ST evaluations
Plan of care discussed with Dr. Dow, hospitalist, patient and family
Consultation
Order
Date of Consultation: 12/25/24
Requesting Provider: hospitalist/Dr. Rojas
Reason for Consult: agitation and history of dementia
Subjective/Objective
Subjective Data
Date of Service: December 25, 2024
64 y/o woman with a past medical history of dementia admitted from [facility] presented to [facility] on 12/21/24 due to agitation. All history obtained from chart as patient with severe dementia, at bedside and unable to
provide additional history. She has a history of dementia diagnosed several years ago. According to her daughter, Mady she had stroke-like symptoms on 12/03/24 with right sided weakness and slurred speech. Started becoming aggressive to her
in June. Admitted to [facility] on November 24. She has had two hospitalizations for agitation one at [facility] and then [facility]. Also seen at [facility] due to a fall and head trauma. Was most recently
at [facility] where she again became agitated and sent to ER for evaluation.
In ED, she was found to have low-grade fever, elevated WBC and started on antibiotics. CXR suggested pneumonia. Now afebrile with normalization of WBC. Head CT with no acute intracranial abnormality.
For her agitation, she apparently has been tried on a number of medications without success. Depakote was being used for behavioral control; never had seizures. Currently on haloperidol, zoloft and mirtazapine for behavior. On donepezil prior to
admission. Current exam reveals woman appearing much older than chronological age; unkempt. Not able to meaningfully communicate. at bedside and not able to tell us who her neurologist is, where she has had testing or what testing has been
done.
Objective Data
Vital Signs
Temp Pulse Resp BP Pulse Ox
98.3 F 75 16 149/77 99
12/25/24 07:58 12/25/24 07:58 12/25/24 07:58 12/25/24 07:58 12/25/24 07:58
Lab Results
12/25/24 08:00
12/25/24 08:00
Sodium 140 mmol/L (135-145) 12/25/24 08:00
Potassium 3.8 mmol/L (3.5-5.1) 12/25/24 08:00
BUN 14 mg/dl (7-17) 12/25/24 08:00
Glucose 103 mg/dl (70-99) H 12/25/24 08:00
Calcium 8.9 mg/dl (8.4-10.2) 12/25/24 08:00
Patient Allergies
No Known Allergies Allergy (Unverified 12/21/24 12:46)
Review of Systems
-
Unable to obtain full review of systems at this time due to: Dementia
Physical Exam
-
Physical exam limited, severe dementia
General: Older than Stated Age
HEENT: Normocephalic, Atraumatic and Anicteric
Neck: Full Range of Motion
Respiratory: No Dyspnea
Cardiac: No JVD
GI: Non-distended
Skin: Unremarkable
Extremities: No Clubbing, No Cyanosis and No Edema
Psych: Confused and Apparent Dementia
Extended Neurological Exam
Attention Span & Concentration: Awake and Unable to Perform 2 Step Request
Memory: Unable to Recall
Speech: Severely Reduced Output
Data Reviewed
-
CT Head: Report Reviewed and Image Reviewed
Labs: Report Reviewed
Reviewed with: Physician, Patient and Family
Old Records: Summarized
Medications
-
Active Medications
Generic Name Dose Route Start Last Admin
Trade Name Freq PRN Reason Stop Dose Admin
Acetaminophen 650 mg 12/21/24 19:40
Acetaminophen 325 Mg Tablet PO 01/18/25 19:39
Q4HPRN PRN
mild pain/ fever>100.5F
Ceftriaxone Sodium 1,000 mg 12/21/24 20:00 12/24/24 19:47
Ceftriaxone 1000 Mg / 10 Ml Vial IV 1,000 mg
Q24H LORENZA Administration
Donepezil HCl 10 mg 12/21/24 22:00 12/24/24 21:18
Donepezil Hcl 10 Mg Tablet PO 01/18/25 21:59 10 mg
HS LORENZA Administration
Doxycycline Hyclate 100 mg 12/21/24 20:00 12/25/24 08:34
Doxycycline 100 Mg Capsule PO 100 mg
Q12 LORENZA Administration
Enoxaparin Sodium 40 mg 12/21/24 19:40 12/24/24 16:56
Enoxaparin Sodium 40 Mg/0.4 Ml Syringe SC 01/18/25 19:39 40 mg
QPM LORENZA Administration
Haloperidol 2 mg 12/23/24 22:00 12/25/24 08:34
Haloperidol 2 Mg Tablet PO 01/20/25 21:59 2 mg
TID LORENZA Administration
Haloperidol Lactate 1 mg 12/21/24 19:40 12/24/24 18:12
Haloperidol 5 Mg/Ml 1 Ml Vial IV 01/18/25 19:39 1 mg
Q4HPRN PRN Administration
agitation
Melatonin 3 mg 12/21/24 22:00 12/24/24 21:18
Melatonin 3 Mg Tablet PO 01/18/25 21:59 3 mg
HS LORENZA Administration
Mirtazapine 7.5 mg 12/23/24 22:00 12/24/24 21:18
Mirtazapine 7.5 Mg Regular Release Tablet PO 01/20/25 21:59 7.5 mg
HS LORENZA Administration
Pantoprazole Sodium 40 mg 12/22/24 08:00 12/25/24 08:34
Pantoprazole 40 Mg Delayed Release Tablet PO 01/19/25 07:59 40 mg
DAILY LORENZA Administration
Sertraline HCl 50 mg 12/22/24 08:00 12/25/24 08:34
Sertraline 50 Mg Tablet PO 01/19/25 07:59 50 mg
DAILY LORENZA Administration
Sodium Chloride 0 flush 12/21/24 20:00
Sodium Chloride 0.9% (Flush) Syringe IV 01/18/25 19:59
PER PROTOCOL LORENZA
Sodium Chloride 0 flush 12/21/24 19:55 12/24/24 19:46
0.9% Nacl Flush If Lactated Ringers Ivf Ordered IV 01/18/25 19:54 1 flush
BID@ LORENZA Administration
Sterile Water 10 ml 12/21/24 20:00 12/24/24 19:47
Sterile Water For Injection 10 Ml Vial IV 01/18/25 19:59 10 ml
Q24H LORENZA Administration
Home Medications
�Medication �Instructions �Recorded
acetaminophen 650 mg 650 mg PO DAILYPRN PRN mild pain 12/21/24
tablet,extended release
atorvastatin 20 mg tablet (Lipitor) 20 mg PO DAILY 12/21/24
divalproex 125 mg capsule,delayed 125 mg PO Q8H@0600,1400,2200 12/21/24
release sprinkle
donepezil 10 mg tablet 10 mg PO HS 12/21/24
ergocalciferol (vitamin D2) 1,250 1,250 mcg PO WEEKLY 12/21/24
mcg (50,000 unit) capsule
melatonin 3 mg tablet 3 mg PO HS 12/21/24
omeprazole 20 mg tablet,delayed 20 mg PO DAILY 12/21/24
release
quetiapine 25 mg tablet (Seroquel) 12.5 mg PO DAILY 12/21/24
quetiapine 25 mg tablet (Seroquel) 25 mg PO HS 12/21/24
sertraline 50 mg tablet 50 mg PO DAILY 12/21/24
--- NOTE | 2024-12-25 14:28 | W.PN.UPDATE ---
Update Note
Progress Note Update
Pt seen, chart reviewed. present. Pt resting calmly in bed. Pt smiling when awakened. She is unable to answer questions, not oriented. Pt able to state 's name with assist. Pt giving murmured answers, rambling. QTc 462 today;
ranging in 440's to 450's since admission. Pt taking Haldol 2 mg TID; Depakote and Seroquel stopped. Pt also on Remeron, Zoloft, Aricept.
Imp: Dementia, progressive, with agitation. Appears calm today on current medications
Rec: continue current psychotropic medications. Will follow
[2024-12-25] MEDS: LOVENOX 40 MG SC (15:29)
[2024-12-25 15:39] VITALS: BP 128/73
[2024-12-25] MEDS: FLUSH (NSS) 1 FLUSH IV ×2 (20:05→20:13)
[2024-12-25] MEDS: ROCEPHIN 1000 MG IV (20:12)
[2024-12-25] MEDS: STERILE WATER FOR INJECTION 10 ML IV (20:12)
[2024-12-25] MEDS: REMERON 7.5 MG PO (22:22)
[2024-12-25] MEDS: ARICEPT 10 MG PO (22:22)
[2024-12-25] MEDS: MELATONIN 3 MG PO (22:22)
[2024-12-25 23:00] VITALS: BP 118/64
--- NOTE | 2024-12-26 02:24 | DOWNTIME ---
There was a [employer] Client [employer] Downtime on 12/26/2024 from 0100 to 12/26/2024 at 0220. Downtime documentation of patient's care, including medication administrations, has been reconciled in the electronic record per guidelines. Refer to the
patient's paper chart under the miscellaneous tab to see printed paper medication records and downtime forms.
[2024-12-26] MEDS: VIBRAMYCIN 100 MG PO ×2 (07:39→20:07)
[2024-12-26] MEDS: ZOLOFT 50 MG PO (07:40)
[2024-12-26] MEDS: PROTONIX 40 MG PO (07:40)
[2024-12-26] MEDS: HALDOL 2 MG PO ×2 (07:40→20:07)
[2024-12-26 08:00] LABS: Hematocrit 36.5 % (37.0-47.0); Hemoglobin 12.5 g/dL (12.0-16.0); Mean Corp Hgb Conc. 34.2 g/dL (33.0-37.0); Mean Corpuscular Volume 96.3 fL (81.0-99.0); Platelet Count 208 10^3/uL (130-400); Red Cell Dist. Width 11.8 % (11.5-14.5)
[2024-12-26 08:06] VITALS: BP 136/62
[2024-12-26 08:26] LABS: ALT (SGPT) 30 U/L (0-35); AST (SGOT) 33 U/L (14-36); Albumin 3.5 g/dl (3.5-5.0); Alkaline Phosphatase 57 U/L (38-126); Blood Urea Nitrogen 16 mg/dl (7-17); Calcium 9.2 mg/dl (8.4-10.2); Carbon Dioxide 33 mmol/L (22-30); Chloride 104 mmol/L (98-107); Estimated Creatinine Clearance 75 ml/min; Glucose 96 mg/dl (70-99); Potassium 4.2 mmol/L (3.5-5.1); Sodium 140 mmol/L (135-145); Total Protein 6.2 g/dl (6.3-8.2); eGFR > 60.00
--- NOTE | 2024-12-26 10:44 | W.PN.HOSP.TC ---
Today's Communication/Plan
-
stop Rocephin
await dispo decision regarding return to [facility] vs SNF
Assessment / Plan
Assessment / Plan
-
Sepsis / TME secondary to probable Pneumonia
-Continue ceftriaxone and doxycycline�can complete 5 to 7-day course
has received 5 doses of rocephin, will stop IV Rocephin, continue oral Doxy for now. Basilar PNA appears to have resolved
CXR: Resolution of small patchy left basilar subsegmental atelectasis and/or pneumonia.
Hypernatremia / Azotemia
�Most likely secondary dehydration
� Resolved
� Can stop IV fluids
-tolerating diet
Na 149-->147-->141-->140-(IVF stopped)->140
Transaminitis, mild
-Hold statin
-Continue to trend, AST/ALT have normalized
Alzheimer's Dementia, suspect underlying behavioral disturbance
-Continue divalproex and quetiapine
-Continue donepezil
-Psych and Neurology consulted for disposition efforts
reviewed with Dr. Dow, wishes Aricept to be continued
12/21 CT head: Unenhanced CT imaging of the head reveals no findings to suggest recent infarction, intracranial hemorrhage, extra-axial fluid collection, mass effect or midline shift. The ventricles, cisterns and sulci are prominent for age. The
brainstem and posterior fossa structures demonstrate no significant focal abnormality.
Anxiety/Depression
-Continue sertraline
Insomnia
-Continue melatonin
Hyperlipidemia
-Hold atorvastatin as AST/ALT are slightly high
DVT proph: SCDs
reviewed with by phone 12/26
Code Status: DNR per POLST
Anticipated Discharge: 24 - 48 hours
Subjective/Interval History
-
Date of Service: December 26, 2024
Mentation about same
Objective Data
-
Labs:
Laboratory Results
12/26/24
07:04
WBC 8.2
Hgb 12.5
Hct 36.5 L
Plt Count 208
Sodium 140
Potassium 4.2
Chloride 104
Carbon Dioxide 33 H
BUN 16
Creatinine 0.6
Glucose 96
Calcium 9.2
Total Bilirubin 0.5
AST 33
ALT 30
Alkaline Phosphatase 57
Vital Signs:
Vital Signs
Temp Pulse Resp BP Pulse Ox
98.3 F 68 16 136/62 99
12/26/24 08:06 12/26/24 08:06 12/26/24 08:06 12/26/24 08:06 12/26/24 08:06
I&O
12/25/24 12/26/24 12/27/24
06:59 06:59 06:59
Intake Total 440 / 440 200 / 200
Balance 440 / 440 200 / 200
Review of Systems
-
Unable to obtain full review of systems at this time due to: Dementia
History Source: Coordinated Provider (reviewed with AMELIA Yip)
Constitutional: Denies Fever
Respiratory: Reports No Symptoms
Cardiac: Reports No Symptoms
Abdomen/GI: Reports No Symptoms
Physical Exam
-
General: Well Developed, Well Nourished and No Apparent Distress
HEENT: Normocephalic, Atraumatic and Moist Mucous Membranes
Respiratory: Clear to Auscultation; Negative Wheezes, Rales or Rhonchi
Cardiac: Regular Rhythm and S1/S2
GI: Soft, Nontender and Nondistended
Musculoskeletal: No Clubbing, No Cyanosis and No Edema
Neuro: Awake, Alert and Other (obviously very impaired cognitive function); Negative Oriented or AO x 3
--- NOTE | 2024-12-26 11:14 | W.PN.UPDATE ---
Update Note
Progress Note Update
Patient seen at bedside, chart reviewed, discussed with staff. Ms. Cleaning was asleep upon entering the room but easily aroused to her name being called. Pleasantly confused and calm. No meaningful conversation had. RN reports she slept well, no
recent agitation. Does not appear to be overly sedate. Did notice some mild shaking of her legs when awoken which may represent some EPS however, baseline unknown.
Impression/Recommendation: Dementia, progressive, with agitation. Appears to be calmer with Haldol. Seroquel and Depakote have been discontinued. I would lower the mid day dose of Haldol to 1mg and consider DC if no worsening of symptoms. Continue
to monitor QTC and s/s of EPS. Remeron, Zoloft, and aricept to be continued for now. Will follow.
--- NOTE | 2024-12-26 11:57 | CM ---
Addendum entered by Stephanie Rubio 12/26/24 14:00:
CM spoke with Ronn from [facility], able to accept patient back tomorrow. Will need DME form completed and signed. Call to patients spouse, Brian, aware of plan likely return to [facility] tomorrow, patient will need ambulance transport.
Original Note:
CM reviewed chart, spoke with Isabela from [facility], referral placed in [facility]. Ronn from [facility] to assess patient bedside, will await confirmation from [facility] patient able to return to facility. Reviewed with Hospitalist. CM will
continue to follow for all discharge planning needs.
Plan; await [facility] assessment, likely return to facility
[2024-12-26] MEDS: HALDOL 1 MG PO (12:03)
[2024-12-26 16:09] VITALS: BP 107/72
[2024-12-26] MEDS: LOVENOX 40 MG SC (17:15)
[2024-12-26] MEDS: FLUSH (NSS) 1 FLUSH IV ×3 (20:06→20:38)
[2024-12-26] MEDS: STERILE WATER FOR INJECTION 10 ML IV (20:07)
[2024-12-26] MEDS: ROCEPHIN 1000 MG IV (20:07)
[2024-12-26] MEDS: REMERON 7.5 MG PO (21:39)
[2024-12-26] MEDS: MELATONIN 3 MG PO (21:39)
[2024-12-26] MEDS: ARICEPT 10 MG PO (21:39)
[2024-12-26 23:00] VITALS: BP 115/73
[2024-12-27 07:15] VITALS: BP 158/101
[2024-12-27] MEDS: VIBRAMYCIN 100 MG PO (07:26)
[2024-12-27] MEDS: PROTONIX 40 MG PO (07:26)
[2024-12-27] MEDS: HALDOL 2 MG PO (07:27)
[2024-12-27] MEDS: ZOLOFT 50 MG PO (07:27)
[2024-12-27 08:12] LABS: Hematocrit 37.5 % (37.0-47.0); Hemoglobin 12.8 g/dL (12.0-16.0); Mean Corp Hgb Conc. 34.1 g/dL (33.0-37.0); Mean Corpuscular Volume 95.2 fL (81.0-99.0); Platelet Count 217 10^3/uL (130-400); Red Cell Dist. Width 11.6 % (11.5-14.5)
[2024-12-27 08:51] LABS: ALT (SGPT) 30 U/L (0-35); AST (SGOT) 34 U/L (14-36); Albumin 3.7 g/dl (3.5-5.0); Alkaline Phosphatase 60 U/L (38-126); Blood Urea Nitrogen 18 mg/dl (7-17); Calcium 9.2 mg/dl (8.4-10.2); Carbon Dioxide 28 mmol/L (22-30); Chloride 105 mmol/L (98-107); Estimated Creatinine Clearance 75 ml/min; Glucose 105 mg/dl (70-99); Potassium 3.9 mmol/L (3.5-5.1); Sodium 139 mmol/L (135-145); Total Protein 6.3 g/dl (6.3-8.2); eGFR > 60.00
--- NOTE | 2024-12-27 11:39 | CM ---
CM reviewed chart, spoke with Kike from [email or web address] with patients nurse, Theodora, regarding patients medications. Clinicals sent via [facility]. Kike in agreement for patient to return. Kike reports [facility] can provide therapy to patient once
at facility.
Patient seen bedside with . IMM reviewed, signed, placed in chart. provided with copy. DME and Med Eval faxed to [facility].
Plan; return to [facility], script for PT/OT in chart, ambulance transport
[facility]
Report: [phone], ask for Kimberly
--- NOTE | 2024-12-27 12:03 | W.PN.HOSP.TC ---
Today's Communication/Plan
-
dc to [facility]
Assessment / Plan
Assessment / Plan
-
Sepsis / TME secondary to probable Pneumonia
-Continue ceftriaxone and doxycycline�can complete 5 to 7-day course
has received 5 doses of rocephin, will stop IV Rocephin, continue oral Doxy for now. Basilar PNA appears to have resolved
CXR: Resolution of small patchy left basilar subsegmental atelectasis and/or pneumonia.
Hypernatremia / Azotemia
�Most likely secondary dehydration
� Resolved
� Can stop IV fluids
-tolerating diet
Na 149-->147-->141-->140-(IVF stopped)->140-->139
Transaminitis, mild
-Hold statin
-Continue to trend, AST/ALT have normalized
Alzheimer's Dementia, suspect underlying behavioral disturbance
-Continue divalproex and quetiapine
-Continue donepezil
-Psych and Neurology consulted for disposition efforts
reviewed with Dr. Dow, wishes Aricept to be continued
12/21 CT head: Unenhanced CT imaging of the head reveals no findings to suggest recent infarction, intracranial hemorrhage, extra-axial fluid collection, mass effect or midline shift. The ventricles, cisterns and sulci are prominent for age. The
brainstem and posterior fossa structures demonstrate no significant focal abnormality.
Anxiety/Depression
-Continue sertraline
Insomnia
-Continue melatonin
Hyperlipidemia
-resume atorvastatin with normalization of AST/ALT
DVT proph: SCDs
reviewed with in room 12/27
Code Status: DNR per POLSTMore than 30 minutes spent in discharge including
Final examination of the patient
Summarizing hospital stay
Instructions for continuing care to all relevant caregivers
Preparation of discharge records, prescriptions, and referral forms
Total time spent (in minutes): 45
Anticipated Discharge: Today
Subjective/Interval History
-
Date of Service: December 27, 2024
appears comfortable
Objective Data
-
Labs:
Laboratory Results
12/27/24
07:16
WBC 8.7
Hgb 12.8
Hct 37.5
Plt Count 217
Sodium 139
Potassium 3.9
Chloride 105
Carbon Dioxide 28
BUN 18 H
Creatinine 0.6
Glucose 105 H
Calcium 9.2
Total Bilirubin 0.4
AST 34
ALT 30
Alkaline Phosphatase 60
Vital Signs:
Vital Signs
Temp Pulse Resp BP Pulse Ox
99.5 F 95 20 158/101 97
12/27/24 07:15 12/27/24 07:15 12/27/24 07:15 12/27/24 07:15 12/27/24 07:15
I&O
12/26/24 12/27/24 12/28/24
06:59 06:59 06:59
Intake Total 200 / 200
Balance 200 / 200
Review of Systems
-
Unable to obtain full review of systems at this time due to: Dementia
History Source: Family ( in room) and Coordinated Provider (reviewed with DYLON Mejía)
Constitutional: Denies Fever
Respiratory: Reports No Symptoms
Cardiac: Reports No Symptoms
Abdomen/GI: Reports No Symptoms
Physical Exam
-
General: Well Developed, Well Nourished and No Apparent Distress
HEENT: Normocephalic, Atraumatic and Moist Mucous Membranes
Respiratory: Clear to Auscultation; Negative Wheezes, Rales or Rhonchi
Cardiac: Regular Rhythm and S1/S2
GI: Soft, Nontender and Nondistended
Musculoskeletal: No Clubbing, No Cyanosis and No Edema
Neuro: Awake, Alert and Other (obviously very impaired cognitive function); Negative Oriented or AO x 3
[2024-12-27] MEDS: HALDOL 1 MG PO (12:46)
[2024-12-27 13:10] VITALS: BP 139/69
--- NOTE | 2024-12-27 13:22 | W.DS.TRANS ---
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
-
Discharge Instructions:
Discharge Diagnosis/Procedures Aspiration Pneumonia, Dementia
Diet Grind all food
Activity With assistance
Driving Restrictions No driving
Bathing Restrictions None
Instructions:
Stand-Alone Forms:
Changes to Home Medications: Yes
Discharge Medications:
DC Medications w/original date entered in [employer]
acetaminophen 650 mg tablet,extended release 650 mg PO DAILYPRN PRN mild pain 12/21/24
atorvastatin 20 mg tablet (Lipitor) 20 mg PO DAILY 12/21/24
divalproex 125 mg capsule,delayed release sprinkle 125 mg PO Q8H@0600,1400,2200 12/21/24
donepezil 10 mg tablet 10 mg PO HS 12/21/24
ergocalciferol (vitamin D2) 1,250 mcg (50,000 unit) capsule 1,250 mcg PO WEEKLY 12/21/24
melatonin 3 mg tablet 3 mg PO HS 12/21/24
omeprazole 20 mg tablet,delayed release 20 mg PO DAILY 12/21/24
quetiapine 25 mg tablet (Seroquel) 12.5 mg PO DAILY 12/21/24
quetiapine 25 mg tablet (Seroquel) 25 mg PO HS 12/21/24
sertraline 50 mg tablet 50 mg PO DAILY 12/21/24
doxycycline hyclate 100 mg capsule 100 mg PO Q12 #10 caps 12/27/24
Home Medication Changes
Doxycycline added for 10 more doses
Pending Results: No
== END 2024-12-27 17:16 | disposition home or self-care (01) | DRG 871 ==
LOC: 4 WEST ACU 17:51
PROVIDERS: Physician Assistant Medical; ADMITTING PHYSICIAN Internal Medicine; ATTENDING PHYSICIAN Internal Medicine; CONSULT PHYSICIAN Psychiatry & Neurology Clinical Neurophysiology; CONSULT PHYSICIAN Psychiatry & Neurology Psychiatry; EMERGENCY PHYSICIAN Student in an Organized Health Care Education/Training Program; FAMILY PHYSICIAN Internal Medicine Geriatric Medicine
DX: A41.9 Sepsis, unspecified organism (principal); G92.8 Other toxic encephalopathy; J69.0 Pneumonitis due to inhalation of food and vomit; E87.0 Hyperosmolality and hypernatremia; F02.C11 Dementia in other diseases classified elsewhere, severe, with agitation; F02.C4 Dementia in other diseases classified elsewhere, severe, with anxiety; F02.C3 Dementia in other diseases classified elsewhere, severe, with mood disturbance; F02.C18 Dementia in other diseases classified elsewhere, severe, with other behavioral disturbance; E87.1 Hypo-osmolality and hyponatremia; F32.A Depression, unspecified; F51.04 Psychophysiologic insomnia; E78.5 Hyperlipidemia, unspecified; E86.0 Dehydration; G30.9 Alzheimer's disease, unspecified; Z66 Do not resuscitate; T43.4X5A Adverse effect of butyrophenone and thiothixene neuroleptics, initial encounter; L89.152 Pressure ulcer of sacral region, stage 2
CPT/HCPCS: 70450; 71045; 71046; 80053; 81003; 81015; 83605; 83735; 85025; 85027; 87040; 87070; 87086; 87502; 87811; 93005; 96361; 96372; 96374; 97163; 97167; 99285

== ENCOUNTER 2024-12-30 14:05 | Emergency (ER) | payer MEDICARE, OTHER, SELFPAY ==
[2024-12-30 14:08] VITALS: BP 126/73
[2024-12-30 14:12] VITALS: BP 126/73
[2024-12-30 14:15] VITALS: BMI 20.8
--- NOTE | 2024-12-30 15:30 | ED.GENMED ---
History of Present Illness
General
Chief Complaint: Fall
Source: ambulance crew
Exam Limitations: dementia
Time Seen by Provider: 12/30/24 14:26
Nursing documentation reviewed up to this point in time: agreed with
History of Present Illness
History of Present Illness:
64-year-old female with Alzheimer's dementia, presents from [facility] for reported fall. EMS states that the staff told them that a caregiver was with the patient when she fell, witnessed, no apparent injuries.
They sent her here for evaluation
Patient has dementia and cannot give a proper history, she knows her name but not where she is, the date, and cannot hold a coherent conversation. She appears in no distress, moving around on the stretcher
Spoke with Director Home Health Reyna at [facility] who spoke to Monse head of , who received report from the staff after the fall (bibiana went home and were unavailable to speak with me).
It is reported that with caregive standing close to her, pt fell out of her wheelchair, did stike her head , no LOC, no apparent injury. Sent here for evaluation after head injury. Not anticoagulate
Past History
Past History
ED Past Medical History: Psychiatric (Dementia) and Other (stage 2 coccyx wound)
Review of Systems
Review of Systems
Allergies reviewed?: Yes
Unable to obtain full review of systems at this time due to: dementia
Phy Exam
Physical Exam
Physical Exam:
GENERAL: No acute distress. Alert, disoriented, demented
CONSTITUTIONAL: Afebrile.
EYES: clear, conjunctivae normal
ENMT: moist mucus membranes
RESPIRATORY: Regular respirations, nonlabored, lungs clear.
CARDIOVASCULAR: Regular rate and rhythm, no murmurs, no rubs.
GI: Soft, nontender, normal BS
MUSCULOSKELETAL: No indication of discomfort with palpation of spine, all extremities, hips. Moving around well on bed. Well perfused. No edema
SKIN: Warm, dry, pink. Multiple small scratches, small areas old ecchymosis, no new wounds or ecchymosis noted.
PSYCH: Normal mood and affect. Well kept, interactive and appropriate
NEUROLOGIC: Awake, alert, disoriented. No focal neurological deficits
Course
Vital Signs
Initial and Last Documented VS:
Initial Vital Signs
Temp Pulse Resp BP Pulse Ox
98.7 F 81 16 126/73 98
12/30/24 14:08 12/30/24 14:08 12/30/24 14:08 12/30/24 14:08 12/30/24 14:08
Last Documented Vital Signs
Temp Pulse Resp BP Pulse Ox
98.7 F 75 16 126/73 96
12/30/24 14:08 12/30/24 15:18 12/30/24 15:18 12/30/24 14:12 12/30/24 15:35
MDM/Problems Addressed
Differential Diagnosis Includes:
injury from fall, concussion
MDM/Problems Addressed:
64-year-old female with Alzheimer's dementia, presents from [facility] for reported fall. EMS states that the staff told them that a caregiver was with the patient when she fell, witnessed, no apparent injuries.
They sent her here for evaluation
Patient has dementia and cannot give a proper history, she knows her name but not where she is, the date, and cannot hold a coherent conversation. She appears in no distress, moving around on the stretcher
Spoke with Director Home Health Reyna at [facility] who spoke to selena [facility]a [facility], who received report from the staff after the fall (everyone went home and were unavailable to speak with me).
It is reported that with staff standing close to her, pt fell out of her wheelchair, did strike her head , no LOC, no apparent injury. Sent here for evaluation after head injury. Not anticoagulate
Patient has dementia and cannot give a proper history, she knows her name but not where she is, the date, and cannot hold a coherent conversation. She appears in no distress, moving around on the stretcher
Physical exam is unremarkable, I see no new bruises or wounds, palpation of the spine, extremities and movement of all extremities elicits no sign of pain.
Back, abdomen and chest have no sign of injury. She has a covering over her sacral wound that is intact
Not anticoagulated, no focal deficits.
Pt is stable, no apparent injury. OK to go back to [place].
*Pulse Oximetry
SaO2: 96
Oxygen Mode of Delivery: Room air
Patient hypoxic: not evaluated
*Critical Care Note
Total Time (30-74mins, 75-104mins- exclusive of procedures): Not Applicable
ED Attending Note
-
Portions of this chart may have been created with voice recognition software.� Occasional wrong word or��sound alike� substitutions may have occurred due to the inherent limitations of voice recognition software.
Discharge Plan
Departure
Patient Disposition: [facility]/SNF
Date of Disposition: 12/30/24
Time of Disposition: 15:54
Condition: Fair
Discharge Problem:
Accidental fall from wheelchair, Minor head injury
Instructions: Head Injury in Adults (DC), Preventing falls in adults
Prescriptions:
No Action
quetiapine [Seroquel] 25 mg Tablet
12.5 mg PO DAILY
atorvastatin [Lipitor] 20 mg Tablet
20 mg PO DAILY
donepezil 10 mg Tablet
10 mg PO HS
melatonin 3 mg Tablet
3 mg PO HS
acetaminophen 650 mg Tablet Extended Release
650 mg PO DAILYPRN PRN (Reason: mild pain)
ergocalciferol (vitamin D2) 1,250 mcg (50,000 unit) capsule
1,250 mcg PO WEEKLY
sertraline 50 mg Tablet
50 mg PO DAILY
divalproex 125 mg Capsule, Delayed Rel Sprinkle
125 mg PO Q8H@0600,1400,2200
omeprazole 20 mg Tablet,Delayed Release (Dr/Ec)
20 mg PO DAILY
quetiapine [Seroquel] 25 mg Tablet
25 mg PO HS
doxycycline hyclate 100 mg Capsule
100 mg PO Q12 Qty: 10 0RF
Referrals:
Domo Echevarria DO [Family Provider, Internal Medicine] - As needed
Activity Restrictions/Additional Instructions:
Ms. Cleaning's exam reveals no significant injury.
Interventions
Interventions:
*Risk Screen - Suicide Last Done: 12/30/24 14:08
*General Assessment Last Done: 12/30/24 14:08
*Neglect/Abuse Screening Last Done: 12/30/24 14:08
*ED- Fall Risk Assessment Last Done: 12/30/24 15:17
*ED COVID-19 Vaccine History Last Done: 12/30/24 15:17
ED-Musculoskeletal Assessment Last Done: 12/30/24 15:15
ED- Neurological Assessment Last Done: 12/30/24 15:15
ED-Skin Assessment Last Done: 12/30/24 15:15
Discharge Date and Time
Print Language: [place] IR[place]
[2024-12-30 17:00] VITALS: BP 95/53
== END 2024-12-30 18:10 ==
LOC: EMR 14:05
PROVIDERS: EMERGENCY PHYSICIAN Emergency Medicine; FAMILY PHYSICIAN Internal Medicine Geriatric Medicine
DX: S09.90XA Unspecified injury of head, initial encounter (principal); W05.0XXA Fall from non-moving wheelchair, initial encounter; F02.80 Dementia in other diseases classified elsewhere, unspecified severity, without behavioral disturbance, psychotic disturbance, mood disturbance, and anxiety; G30.9 Alzheimer's disease, unspecified
CPT/HCPCS: 99282